=== PATIENT | male | born 1960 | race Caucasian/White ===

== ENCOUNTER 2020-06-07 07:47 | Observation (INO) | payer OTHER ==
[~2020-06-07] VITALS: Ht 177.8 cm; Wt 74.8 kg
[2020-06-07 07:54] VITALS: BP 151/103
[2020-06-07 08:09] LABS: ABSOLUTE BASOPHILS 0.1 thou/uL (0.0-0.2); ABSOLUTE EOSINOPHILS 0.3 thou/uL (0.0-0.7); ABSOLUTE LYMPHOCYTES 1.4 thou/uL (0.8-5.3); ABSOLUTE MONOCYTES 0.5 thou/uL (0.0-1.2); ABSOLUTE NEUTROPHILS 4.2 thou/uL (1.6-8.1); EOSINOPHILS 3.9 %; HEMATOCRIT 49.1 % (42.0-52.0); HEMOGLOBIN 16.5 gm/dL (14.0-18.0); LYMPHOCYTES 22.1 %; MCH 31.6 pg (26.0-34.0); MCHC 33.6 g/dL (28.0-37.0); MCV 94.1 fL (80.0-100.0); MONOCYTES 7.8 %; MPV 8.6 fl. (7.2-11.1); NUCLEATED RBCS 0 /100WBC; PLATELET COUNT* 222 thou/uL (150-400); POLYS 65.2 %; RBC 5.22 mil/uL (4.50-6.00); RDW-CV 13.7 % (10.5-14.5); WBC 6.4 thou/uL (4.0-11.0)
[2020-06-07 08:14] LABS: CALCIUM 9.2 mg/dL (8.5-10.1); CREATININE 1.4 mg/dL (0.6-1.3); POTASSIUM 3.7 mmol/L (3.5-5.1)
[2020-06-07 08:19] LABS: ALBUMIN 3.6 g/dL (3.4-5.0); TOTAL BILIRUBIN 0.5 mg/dL (<0.1-1.0); TOTAL PROTEIN 7.2 g/dL (6.4-8.2)
--- NOTE | 2020-06-07 11:30 | NUR ---
CARDIOLOGY CONSULT, DR BELTRÁN AT BEDSIDE
--- NOTE | 2020-06-07 12:48 | EKG ---
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1960 Requested By: Lukas Sprague Order Number: [id number] MD: Timur Prasad Measurements Intervals [place] Rate: 75 P: 53 [place]: 147 QRS: 23 QRSD: 95 T: 64 QT: 415 QTc: 464 Interpretive Statements Sinus rhythm Left atrial enlargement Baseline wander in lead(s) V1 No previous ECG available for comparison Electronically Signed On 06-07-2020 12:48:35 DIRECTOR MOTION PICTURE by Timur Prasad [email or web address] <ELECTRONICALLY SIGNED> By: Timur Prasad MD, [facility] 06/07/20 1248 0757 0757 Timur Prasad MD, [facility] /EPI
[2020-06-07 13:28] VITALS: BP 162/115
[2020-06-07 16:00] VITALS: BP 162/100
--- NOTE | 2020-06-07 17:17 | CARDNUC ---
[place] [address] CARDIAC NUCLEAR IMAGING REPORT Name: PRINCESS MATUTE Room: [address] M.R.#: [id number] Admission: 06/07/20 Attend Phys: Princess Ferrer, Discharge: Date of : 58 Date of Service: 06/07/20 1717 Report #: [id number] THIS REPORT FOR: cc: FAM - No family physician/PCP FAM - No family physician/PCP Noel Cooper MD [facility] ~ APPROVED REPORT Study performed: 06/07/2020 15:08:18 Exam: Nuclear Stress Test Indication: Chest pain, left arm numbness, jaw numbness, dizziness, fatigue. Patient Location: In-Patient Room #: 226 Stress Tech: Holly London Stress Nurse: Norberto Pham Tech:LINA March Ht: 5 ft 10 in Wt: 165 lbs BSA: 1.92 m2 BMI: 23.67 Medical History Medical History: Angina, left arm numbness, jaw numbness, dizziness, mild fatigue, vision floaters, slurred speech, HTN, current smoker, lightheadedness, upper extremity weakness, increased glucose. Medications: No home meds reported. E.D. meds - hydralazine, normodyne, ASA 81 Mg. Allergies: No known drug allergies Cardiac Risk Factors: Age, Current Smoker, increased glucose, FHX of CAD, HTN. Previous Cardiac Procedures: None Pretest Chest Pain Characteristics: No chest pain Exercise History: Physically active Physical Disabilities: Acute Left arm and hand numbness. Meds Held (24 hrs): None Stress Test Details Stress Test: Exercise stress testing was performed using a Wero protocol. HR Resting HR: 59 bpm Max Heart Rate (APMHR): 159 bpm Max HR Achieved: 146 bpm Target HR (85% APMHR): 135 [place] [address] CARDIAC NUCLEAR IMAGING REPORT Name: PRINCESS MATTUE Room: [address]#: [id number] Admission: 06/07/20 Attend Phys: Princess Ferrer, Discharge: Date of : 58 Date of Service: 06/07/20 1717 Report #: [id number] % of APMHR: 91 Recovery HR: 85 bpm BP Resting BP: 184/116 mmHg Max BP: 201/106 mmHg ECG Resting ECG: Sinus Rhythm Stress ECG: Sinus Tachycardia ST Change: None Arrhythmia: VPC's Recovery ECG: Sinus Rhythm Recovery ST Change: None Recovery Arrhythmia: VPC's Clinical Reason for Termination: Completed protocol, Maximal effort, Patient Request, target HR achieved. Stress Symptoms: Dyspnea, lightheadedness, fatigue, weakness. Exercise duration: 9 min 56 sec Exercise capacity: 11.68 METs Overall Exercise Capacity for Age: Superior The patient tolerated standard Wero protocol exercise without significant cardiac complaint. Nurse Comments A 60 year old male inpatient presented for a treadmill Nuclear Stress Test. Treadmill tolerated to stage 4 with assistance. Recovery unremarkable. Patient was stable and stated he felt good when escorted via wheelchair to Echo then to Nuclear Medicine for imaging. Stress ECG Conclusion The baseline twelve-lead EKG shows sinus rhythm without significant ST segment or T wave abnormality. EKGs obtained during and post exercise show sinus rhythm and sinus tachycardia without significant ST segment or T wave changes when compared to baseline. There were occasional unifocal premature ventricular contractions noted. NM EXAM: Myocardial Perfusion REST/STRESS Imaging Protocol: Rest Tc-99m/Stress Tc-99m 1 day Resting Data Rest SPECT myocardial perfusion imaging [place] [address] CARDIAC NUCLEAR IMAGING REPORT Name: PRINCESS MATUTE [address] [id number] Admission: 06/07/20 Attend Phys: Princess Ferrer, Discharge: Date of : 58 Date of Service: 06/07/20 1717 Report #: [id number] position 30 minutes following the intravenous injection of 11.4 mCi of Tc-99m Sestamibi. Time of rest injection: 1355 Date: 06/07/2020 The images were gated to evaluate regional wall motion and calculate left ventricular ejection fraction. Administration Route: IV Administration Site: Left AC Exercise Stress At peak stress, the patient was injected intravenously with 31.9mCi of Tc-99m Sestamibi. Time of stress injection: 1530 Date: 06/07/2020 Administration Route: IV Administration Site: Left AC Gated Stress SPECT was performed 40 minutes after stress injection. The images were gated to evaluate regional wall motion and calculate left ventricular ejection fraction. Prone imaging was performed. Study Quality Study: Good Artifact: No artifact Study Data At rest, the left ventricular ejection fraction was 76%.. Post stress, the left ventricular ejection was 71%.. TID = 0.92. Perfusion Perfusion images obtained at rest and post exercise stress show uniform uptake of the radioisotope throughout the myocardium. There were no defects to suggest infarct or ischemia. Wall Motion Normal left ventricular wall motion. Nuclear Conclusion ECG Findings: negative for ischemia Clinical Findings: negative for ischemia Nuclear Findings: negative for ischemia Exercise Capacity: normal Left Ventricular Function: normal Risk Study: low Perfusion images show no defect to suggest infarct or ischemia. Left ventricular systolic function appears normal [place] [address] CARDIAC NUCLEAR IMAGING REPORT Name: PRINCESS MATUTE [id number] Admission: 06/07/20 Attend Phys: Princess Ferrer, Discharge: Date of : 58 Date of Service: 06/07/20 1717 Report #: [id number] is a low risk study. <Conclusion> The baseline twelve-lead EKG shows sinus rhythm without significant ST segment or T wave abnormality. EKGs obtained during and post exercise show sinus rhythm and sinus tachycardia without significant ST segment or T wave changes when compared to baseline. There were occasional unifocal premature ventricular contractions noted. <ELECTRONICALLY SIGNED> By: Noel Cooper MD, FACC 06/07/201716 16 16 Noel Cooper MD, FACC /INF
--- NOTE | 2020-06-07 17:20 | 2DMMODE ---
[place] [address] 2 D/M-MODE ECHOCARDIOGRAM Name: PRINCESS MATUTE Room: [address] MK[address]aw#: [id number] Admission: 06/07/20 Attend Phys: Princess Ferrer, Discharge: Date of : 58 Date of Service: 06/07/20 1719 Report #: [id number] THIS REPORT FOR: cc: FAM - No family physician/PCP FAM - No family physician/PCP Noel Cooper MD [facility] ~ APPROVED REPORT Study performed: 06/07/2020 15:20:41 EXAM: Comprehensive 2D, Doppler, and color-flow Echocardiogram Patient Location: In-Patient Room #: [facility] Status: routine BSA: 1.92 HR: 75 bpm BP: 184/116 mmHg Rhythm: NSR Other Information Study Quality: Good Indications Dyspnea 2D Dimensions IVSd: 11.40 (7-11mm) LVOT Diam: 20.58 (18-24mm) LVDd: 41.47 mm PWd: 10.93 (7-11mm) Ascending Ao: 38.30 (22-36mm) LVDs: 26.86 (25-40mm) Aortic Root: 34.72 mm Volumes Left Atrial Volume (Systole) LA ESV Index: 19.20 mL/m2 Aortic Valve AoV Peak Steve.: 0.93 m/s AO Peak Gr.: 3.48 mmHg LVOT Max P.58 mmHg AO Mean Gr.: 2.17 mmHg LVOT Mean P.04 mmHg LVOT Max V: 0.95 m/s AO V2 VTI: 18.87 cm LVOT Mean V: 0.69 m/s SHANTAL (VTI): 3.03 cm2 LVOT V1 VTI: 17.21 [place] [address] 2 D/M-MODE ECHOCARDIOGRAM Name: PRINCESS MATUTE Room: [address]#: [id number] Admission: 06/07/20 Attend Phys: Princess Ferrer, Discharge: Date of : 58 Date of Service: 06/07/20 1719 Report #: [id number] Mitral Valve E/A Ratio: 0.63 MV Decel. Time: 352.36 ms MV E Max Steve.: 0.63 m/s MV PHT: 102.18 ms MVA (PHT): 2.15 cm2 TDI E/Lateral E': 7.00 E/Medial E': 6.30 Medial E' Steve.: 0.10 m/s Lateral E' Steve.: 0.09 m/s Pulmonary Valve PV Peak Steve.: 0.98 m/s PV Peak Gr.: 3.82 mmHg Tricuspid Valve RAP Estimate: 5.00 mmHg TR Peak Gr.: 18.84 mmHg RVSP: 23.00 mmHg PA Pressure: 23.00 mmHg Left Ventricle The left ventricle is normal size. There is normal LV segmental wall motion. There is normal left ventricular wall thickness. Left ventricular systolic function is normal. LVEF is 65-70%. Grade I - abnormal relaxation pattern. Right Ventricle The right ventricle is normal size. The right ventricular systolic function is normal. Atria The left atrium size is normal. The right atrium size is normal. Aortic Valve The aortic valve is normal in structure. No aortic regurgitation is present. There is no aortic valvular stenosis. Mitral Valve There is mitral annular calcification. Trace mitral regurgitation. Mild mitral stenosis. Tricuspid Valve The tricuspid valve is normal in structure. Trace tricuspid regurgitation. [place] [address] 2 D/M-MODE ECHOCARDIOGRAM Name: PRINCESS MATUTE Room: [address]#: [id number] Admission: 06/07/20 Attend Phys: Princess Ferrer, Discharge: Date of : 58 Date of Service: 06/07/20 1719 Report #: [id number] Pulmonic Valve The pulmonary valve is normal in structure. There is no pulmonic valvular regurgitation. Great Vessels The aortic root is normal in size. IVC is normal in size and collapses >50% with inspiration. Pericardium There is no pericardial effusion. <Conclusion> The left ventricle is normal size. There is normal left ventricular wall thickness. Left ventricular systolic function is normal. LVEF is 65-70%. Grade I - abnormal relaxation pattern. Trace mitral regurgitation. Trace tricuspid regurgitation. No pulmonary hypertension. IVC is normal in size and collapses >50% with inspiration. <ELECTRONICALLY SIGNED> By: Noel Cooper MD, FACC 06/07/20 171 18 18 Noel Cooper MD, FACC /INF
--- NOTE | 2020-06-07 18:46 | NUR ---
PT UP FROM STRESS TEST AROUND 1630 OR SO STRESS TEST CAME BACK READING NEGATIVE FROM WHAT THIS NURSE SEES DISCUSSED WITH HOSPITALIST AND ONE TIME AMLODOPINE 5MG NOW AND DR GOMEZ IS TO COME IN AND DISCUSS POSSIBLE DC WITH PT PT IS OKAY NOW ATE SUPPER BUT STILL COMPLAINING OF NUMBNESS AND TINGLING TO LEFT ARM BLOOD PRESSURE STILL ELEVATED WELL
[2020-06-07 20:00] VITALS: BP 141/92
[2020-06-08] VITALS: BP 127/82
[2020-06-08 02:06] LABS: GLYCOHEMOGLOBIN (HGB A1C) 5.3 % (4.8-5.6)
[2020-06-08 05:12] LABS: BUN 18 mg/dL (7-18); CALCIUM 8.8 mg/dL (8.5-10.1); CHLORIDE 105 mmol/L (98-107); CREATININE 1.3 mg/dL (0.6-1.3); GLUCOSE 181 mg/dL (70-99); MAGNESIUM 2.1 mg/dL (1.8-2.4); POTASSIUM 4.1 mmol/L (3.5-5.1); SODIUM 139 mmol/L (136-145)
[2020-06-08 05:36] LABS: ANION GAP 11 mmol/L (7-16); CO2 23 mmol/L (21-32)
--- NOTE | 2020-06-08 06:13 | NUR ---
ASSESSMENTS COMPLETED AT BEDSIDE, PLEASE REFER TO CHARTING FOR DETAILS. MEDICATIONS ADMINISTERED PER MAR. NO C/O PAIN OR DISCOMFORT NOTED BY PT. BLOOD PRESSURES CONTINUED TO IMPROVE THROUGH OUT SHIFT. PT IS CURRENTLY IN BED WATCHING TV WITH CALL LIGHT WITHIN REACH.
[2020-06-08 06:16] VITALS: BP 156/93
[2020-06-08 08:00] VITALS: BP 134/97
[2020-06-08] MEDS ORDERED: ASA81BEC PO (08:15)
[2020-06-08] MEDS ORDERED: NORVASC5 M1 PO (08:15)
[2020-06-08] MEDS ORDERED: HYDROCHLOROTHIA25 M1 PO (08:15)
[2020-06-08 08:57] VITALS: BP 156/93
[2020-06-08 09:52] VITALS: BP 156/93
--- NOTE | 2020-06-08 09:53 | NUR ---
ASSUMED PT CARE AT 0730, PT AOX4, NO C/O PAIN, DC ORDERS RECEIVED. DC INSTRUCTIONS, CARE NOTES, SCRIPTS AND F/U APPTS GIVEN TO PT. PT COMMUNICATES UNDERSTANDING OF DC TEACHING. IV AND STITCH CLEANER REMOVED. PT DC'D BY WC W/ NURSING STAFF AND ALL PERSONAL BELONGINGS AND PAPERWORK TO OWN PERSONAL VEHICLE AT APPROX 0920
--- NOTE | 2020-06-08 14:27 | CON ---
[address] [address] CONSULTATION Name: PRINCESS MATUTE Room: [address] [place]#: [id number] Admission: 06/07/20 Attend Phys: Princess Ferrer MD Discharge: 06/08/20 Date of : 58 Report #: [id number] THIS REPORT FOR: cc: FAM - No family physician/PCP FAM - No family physician/PCP ~ Noel Cooper MD [facility] DATE OF SERVICE: 06/07/2020 CARDIOLOGY CONSULTATION INDICATION: Left arm numbness and jaw numbness. HISTORY OF PRESENT ILLNESS: The patient is a 60-year-old gentleman who presented to the Emergency Room with complaints primarily of left arm numbness and jaw numbness. Initially, he reported some chest pain with this, although he denies that to myself. He does not have any shortness of breath. Yesterday, he had some dizziness without syncope. He has a history of hypertension. He denies any other significant medical history. He is on no medications. At the time of interview, he is pain free. EKG shows sinus rhythm with no acute ST or T-wave abnormalities. Cardiac enzymes are negative x 2 sets. PAST MEDICAL HISTORY: Hypertension. CURRENT MEDICATIONS: None. ALLERGIES: None. SOCIAL HISTORY: The patient denies use of alcohol. He does smoke. REVIEW OF SYSTEMS: A 14-point review of systems is remarkable for dizziness, mild fatigue, numbness in the left arm and jaw. He did report chest pain, although he denies that to me at present. He is without other complaint on a 14-point review of systems PHYSICAL EXAMINATION: VITAL SIGNS: Blood pressure 171/104, pulse is 72 and regular. GENERAL: This is a pleasant gentleman in no distress. HEENT: Head is normocephalic, atraumatic. Extraocular muscles intact. Mucous membranes are moist. NECK: Shows no jugular venous distention. There are no carotid bruits. CHEST: Reveals clear lung michael. I do not appreciate wheezes or rales. CARDIOVASCULAR: Reveals a regular rhythm, normal S1, S2. I do not appreciate gallop or murmur. ABDOMEN: Reveals normal bowel sounds. The abdomen is soft, [place] [address] CONSULTATION Name: PRINCESS MATUTE [address] [id number] Admission: 06/07/20 Attend Phys: Princess Ferrer MD Discharge: 06/08/20 Date of : 58 Report #: [id number] EXTREMITIES: Shows no edema. SKIN: Warm and dry. LABORATORY DATA: Labs are reviewed and are essentially unremarkable. Troponins are less than 0.06 on 2 separate occasions. Chest x-ray shows some possible right upper lobe atelectasis, but no evidence of edema. IMPRESSION AND RECOMMENDATIONS: 1. Atypical symptoms, possibly suggesting angina. We will obtain stress test. Further intervention will be pending results of that study. 2. Numbness and tingling in the left arm and jaw. The patient had a CT head that was unremarkable. Symptoms are resolving. 3. Hypertension. We will start amlodipine 5 mg daily. May adjust medications pending results of cardiac studies. 4. Check fasting lipid profile. <ELECTRONICALLY SIGNED> By: Noel Cooper MD, FACC 06/08/20 1427 1210 1218Mictorito Cooper MD, FACC /nt
[2020-06-08 15:31] LABS: CHOLESTEROL 156 mg/dL (<200); HDL CHOLESTEROL 54 mg/dL (>40); LDL CHOLESTEROL 81 mg/dL (<100); SERUM ASSESSMENT Clear; TC:HDL 2.9 Ratio (Not establshd); TRIGLYCERIDE 106 mg/dL (<150); VLDL 21 mg/dL (<40)
== END 2020-06-08 09:20 | disposition home or self-care (01) ==
LOC: M.ERS 07:47 → M.TBA-ER 09:09 → M.2W 13:31
PROVIDERS: Emergency Medicine; ADMIT Internal Medicine; ATTEND Internal Medicine
DX: I16.1 Hypertensive emergency (principal); R07.89 Other chest pain; I12.9 Hypertensive chronic kidney disease with stage 1 through stage 4 chronic kidney disease, or unspecified chronic kidney disease; N18.2 Chronic kidney disease, stage 2 (mild); R73.9 Hyperglycemia, unspecified; G62.9 Polyneuropathy, unspecified; Z79.82 Long term (current) use of aspirin; Z79.899 Other long term (current) drug therapy; Z20.822 Contact with and (suspected) exposure to COVID-19

== ENCOUNTER 2020-06-25 11:35 | Emergency (ER) | payer OTHER ==
[~2020-06-25] VITALS: Ht 177.8 cm; Wt 74.8 kg
[~2020-06-25 11:35] MED LIST: ASA81BEC PO; HYDROCHLOROTHIA25 M1 PO; NORVASC5 M1 PO
[2020-06-25 12:08] LABS: ABSOLUTE BASOPHILS 0.1 thou/uL (0.0-0.2); ABSOLUTE EOSINOPHILS 0.2 thou/uL (0.0-0.7); ABSOLUTE LYMPHOCYTES 1.7 thou/uL (0.8-5.3); ABSOLUTE MONOCYTES 0.6 thou/uL (0.0-1.2); ABSOLUTE NEUTROPHILS 4.3 thou/uL (1.6-8.1); BASOPHILS 0.9 %; EOSINOPHILS 3.1 %; HEMATOCRIT 52.1 % (42.0-52.0); HEMOGLOBIN 17.8 gm/dL (14.0-18.0); LYMPHOCYTES 24.4 %; MCH 32.3 pg (26.0-34.0); MCHC 34.1 g/dL (28.0-37.0); MCV 94.9 fL (80.0-100.0); MONOCYTES 9.3 %; MPV 7.9 fl. (7.2-11.1); NUCLEATED RBCS 0 /100WBC; PLATELET COUNT* 250 thou/uL (150-400); POLYS 62.3 %; RDW-CV 13.7 % (10.5-14.5); WBC 6.9 thou/uL (4.0-11.0)
[2020-06-25 12:20] LABS: CREATININE 1.4 mg/dL (0.6-1.3)
[2020-06-25 12:24] LABS: APTT 27.3 Seconds (25.0-31.3); PROTIME 10.4 Seconds (9.20-11.50)
[2020-06-25 12:31] LABS: ALBUMIN 3.7 g/dL (3.4-5.0); TOTAL BILIRUBIN 0.5 mg/dL (<0.1-1.0)
[2020-06-25 13:01] VITALS: BP 142/90
--- NOTE | 2020-06-27 17:29 | EKG ---
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
== END 2020-06-25 13:01 | disposition home or self-care (01) ==
LOC: M.ERS 11:35
PROVIDERS: Family Medicine
DX: I10 Essential (primary) hypertension (principal); R42 Dizziness and giddiness; R20.0 Anesthesia of skin; R20.2 Paresthesia of skin; F17.210 Nicotine dependence, cigarettes, uncomplicated; Z86.73 Personal history of transient ischemic attack (TIA), and cerebral infarction without residual deficits; Z79.82 Long term (current) use of aspirin; Z79.899 Other long term (current) drug therapy

== ENCOUNTER 2020-08-12 08:00 | Emergency (ER) | payer OTHER ==
[~2020-08-12] VITALS: Ht 177.8 cm; Wt 74.8 kg
[2020-08-12 08:32] LABS: ABSOLUTE BASOPHILS 0.1 thou/uL (0.0-0.2); ABSOLUTE EOSINOPHILS 0.2 thou/uL (0.0-0.7); ABSOLUTE LYMPHOCYTES 1.6 thou/uL (0.8-5.3); ABSOLUTE MONOCYTES 0.6 thou/uL (0.0-1.2); ABSOLUTE NEUTROPHILS 5.5 thou/uL (1.6-8.1); BASOPHILS 0.9 %; EOSINOPHILS 2.2 %; HEMATOCRIT 53.6 % (42.0-52.0); HEMOGLOBIN 18.1 gm/dL (14.0-18.0); LYMPHOCYTES 20.3 %; MCH 31.7 pg (26.0-34.0); MCHC 33.9 g/dL (28.0-37.0); MCV 93.6 fL (80.0-100.0); MONOCYTES 7.4 %; MPV 8.1 fl. (7.2-11.1); NUCLEATED RBCS 0 /100WBC; PLATELET COUNT* 254 thou/uL (150-400); POLYS 69.2 %; RBC 5.73 mil/uL (4.50-6.00); RDW-CV 14.3 % (10.5-14.5); WBC 7.9 thou/uL (4.0-11.0)
[2020-08-12 08:39] LABS: CALCIUM 9.2 mg/dL (8.5-10.1); CREATININE 1.3 mg/dL (0.6-1.3); POTASSIUM 3.7 mmol/L (3.5-5.1)
[2020-08-12 08:56] LABS: ALBUMIN 3.6 g/dL (3.4-5.0); TOTAL BILIRUBIN 0.6 mg/dL (<0.1-1.0); TOTAL PROTEIN 7.8 g/dL (6.4-8.2)
[2020-08-12 09:19] LABS: URINE BILIRUBIN NEGATIVE (Negative); URINE BLOOD TRACE (Negative); URINE CLARITY CLEAR; URINE COLOR YELLOW; URINE GLUCOSE-RANDOM NEGATIVE (Negative); URINE KETONES NEGATIVE (Negative); URINE LEUKOCYTES-REFLEX NEGATIVE (Negative); URINE NITRITE-REFLEX NEGATIVE (Negative); URINE PROTEIN NEGATIVE (Negative); URINE UROBILINOGEN 0.2 E.U./dl (0.2-1.0)
[2020-08-12 12:20] VITALS: BP 165/91
--- NOTE | 2020-08-12 14:15 | EKG ---
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 : 1960 Requested By: Sean Frazier Order Number: [id number] MD: Timur Prasad Measurements Intervals [place] Rate: 69 P: 67 [place]: 146 QRS: 64 QRSD: 88 T: 79 QT: 427 QTc: 458 Interpretive Statements Pacemaker spikes or artifacts Sinus rhythm Probable left atrial enlargement Baseline wander in lead(s) V1 Compared to ECG 06/25/2020 11:48:17 No significant changes Electronically Signed On 08-12-2020 14:15:12 CDT by Timur Prasad [email or web address] <ELECTRONICALLY SIGNED> By: Timur Prasda MD, [facility] 08/12/20 1415 0817 0817 Timur Prasad MD, [facility] /EPI
== END 2020-08-12 12:20 | disposition home or self-care (01) ==
LOC: M.ERS 08:00
PROVIDERS: Emergency Medicine Emergency Medical Services
DX: E86.0 Dehydration (principal); I95.1 Orthostatic hypotension; I10 Essential (primary) hypertension; F17.210 Nicotine dependence, cigarettes, uncomplicated; Z86.73 Personal history of transient ischemic attack (TIA), and cerebral infarction without residual deficits

== ENCOUNTER 2021-01-19 21:26 | Emergency (ER) | payer OTHER | END 2021-01-20 00:30 | disposition home or self-care (01) | LOC: M.ERS 21:26 | DX: R22.0 Localized swelling, mass and lump, head (principal); Z53.21 Procedure and treatment not carried out due to patient leaving prior to being seen by health care provider ==

== ENCOUNTER 2021-01-24 21:19 | Emergency (ER) | payer OTHER ==
[~2021-01-24] VITALS: Ht 177.8 cm; Wt 74.8 kg
[2021-01-24] MEDS ORDERED: CEPHALEXIN500 MG PO ×2 (21:44→21:49)
[2021-01-24 21:53] VITALS: BP 154/96
== END 2021-01-24 21:54 | disposition home or self-care (01) ==
LOC: M.ERS 21:19
DX: L72.3 Sebaceous cyst (principal); I10 Essential (primary) hypertension

== ENCOUNTER 2021-03-09 09:36 | Emergency (ER) | payer OTHER ==
[~2021-03-09] VITALS: Ht 177.8 cm; Wt 74.8 kg
[~2021-03-09 09:36] MED LIST changes: +CEPHALEXIN500 MG PO
[2021-03-09 10:25] LABS: ABSOLUTE BASOPHILS 0.1 thou/uL (0.0-0.2); ABSOLUTE EOSINOPHILS 0.3 thou/uL (0.0-0.7); ABSOLUTE LYMPHOCYTES 1.4 thou/uL (0.8-5.3); ABSOLUTE MONOCYTES 0.7 thou/uL (0.0-1.2); ABSOLUTE NEUTROPHILS 5.6 thou/uL (1.6-8.1); BASOPHILS 1.2 %; EOSINOPHILS 3.6 %; HEMATOCRIT 49.4 % (42.0-52.0); HEMOGLOBIN 16.9 gm/dL (14.0-18.0); LYMPHOCYTES 17.4 %; MCH 32.2 pg (26.0-34.0); MCHC 34.2 g/dL (28.0-37.0); MCV 94.1 fL (80.0-100.0); MONOCYTES 8.9 %; NUCLEATED RBCS 0 /100WBC; PLATELET COUNT* 222 thou/uL (150-400); POLYS 68.9 %; RBC 5.25 mil/uL (4.50-6.00); RDW-CV 14.2 % (10.5-14.5); WBC 8.1 thou/uL (4.0-11.0)
[2021-03-09 10:47] LABS: CREATININE 1.2 mg/dL (0.6-1.3); POTASSIUM 4.1 mmol/L (3.5-5.1)
--- NOTE | 2021-03-09 11:14 | EKG ---
[place] [address] ELECTROCARDIOGRAM REPORT Name: PRINCESS MATUTE Room: [facility]#: [id number] Admission: 03/09/21 Attend Phys: Discharge: Date of : 58 Date of Service: 03/09/21 0949 Report #: [id number] THIS REPORT FOR: //name// 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
[2021-03-09] MEDS ORDERED: PREDNISONE 20 M20 MG PO (16:40)
[2021-03-09 17:07] VITALS: BP 164/95
== END 2021-03-09 17:12 | disposition home or self-care (01) ==
LOC: M.ERS 09:36
PROVIDERS: Emergency Medicine
DX: M50.323 Other cervical disc degeneration at C6-C7 level (principal); I10 Essential (primary) hypertension; F17.210 Nicotine dependence, cigarettes, uncomplicated

== ENCOUNTER 2021-04-05 12:40 | Emergency (ER) | payer OTHER ==
[~2021-04-05] VITALS: Ht 177.8 cm; Wt 74.8 kg
[~2021-04-05 12:40] MED LIST changes: +PREDNISONE 20 M20 MG PO
[2021-04-05 15:30] VITALS: BP 177/113
== END 2021-04-05 15:31 | disposition home or self-care (01) ==
LOC: M.ERS 12:40
DX: M71.21 Synovial cyst of popliteal space [Baker], right knee (principal); I10 Essential (primary) hypertension